=== PATIENT | female | born 1975 | race Two or more races ===

== ENCOUNTER 2020-07-10 08:30 | Inpatient (IN) | payer OTHER ==
[~2020-07-10] VITALS: Ht 162.6 cm; Wt 72.6 kg
[2020-07-10] MEDS ORDERED: GRALISE600 MG PO (11:21)
[2020-07-10] MEDS ORDERED: BACLOFEN20 MG PO (11:38)
[2020-07-10] MEDS ORDERED: IBU800 MG PO (11:39)
== END 2020-07-20 12:31 | disposition home or self-care (01) | DRG 743 ==
LOC: SURH 08:30 → O/R 07-17 09:45 → SURG 07-17 19:35 → SURH 07-17 20:00 → SURG 07-20 12:31
PROVIDERS: ADMIT Obstetrics & Gynecology Gynecologic Oncology; ATTEND Obstetrics & Gynecology Gynecologic Oncology
PROC: 0UT20ZZ Resection of Bilateral Ovaries, Open Approach (ICD-10-PCS; 2020-07-17)
PROC: 0UT70ZZ Resection of Bilateral Fallopian Tubes, Open Approach (ICD-10-PCS; 2020-07-17)
PROC: 0UT90ZZ Resection of Uterus, Open Approach (ICD-10-PCS; principal; 2020-07-17 20:00)
DX: D25.1 Intramural leiomyoma of uterus (principal); D25.0 Submucous leiomyoma of uterus; N83.201 Unspecified ovarian cyst, right side; N93.9 Abnormal uterine and vaginal bleeding, unspecified

== ENCOUNTER 2024-03-19 07:15 | Inpatient (IN) | payer OTHER ==
[~2024-03-19] VITALS: Ht 167.6 cm; Wt 83.5 kg
[~2024-03-19 07:15] MED LIST: BACLOFEN20 MG PO; GRALISE600 MG PO; IBU800 MG PO
[2024-03-21] MEDS ORDERED: ZESTRIL30 MG (09:55)
[2024-03-21] MEDS ORDERED: GABAPENTIN 800MG (09:56)
[2024-03-21] MEDS ORDERED: ADULT LOW DOSE81 M1 (09:56)
[2024-03-21] MEDS ORDERED: CYMBALTA60 MG (09:56)
[2024-03-21] MEDS ORDERED: TEMAZEPAM30 MG (09:57)
[2024-03-21] MEDS ORDERED: QUETIAPINE 100 MG (09:57)
[2024-03-21] MEDS ORDERED: DIVALPROEX (09:58)
[2024-03-21 10:20] LABS: HEMATOCRIT 38.4 % (36.0-45.00); HEMOGLOBIN 13.2 g/dL (12.0-15.00); MEAN CELL VOLUME 85.9 fL (80.00-100.00); MEAN CORPUSCULAR HEMOGLOBIN 29.6 pg (27.00-32.0); MEAN CORPUSCULAR HGB CONC 34.4 g/dl (32.0-36.0); PLATELET COUNT 327 K/uL (150-450); RED BLOOD COUNT 4.47 M/uL (4.00-6.00); RED CELL DISTRIBUTION WIDTH 15.6 % (11.5-14.5)
[2024-03-21 10:22] LABS: URINE APPEARANCE Clear; URINE BILIRRUBIN Negative (NEGATIVE); URINE BLOOD Negative; URINE COLOR Yellow; URINE GLUCOSE Negative (NEGATIVE); URINE KETONE Negative (NEGATIVE); URINE LEUKOCYTE Negative; URINE NITRATE Negative; URINE PROTEIN Negative (NEGATIVE); URINE UROBILINOGEN 0.2 E.U./dl
[2024-03-21 10:24] LABS: URINE BACTERIA 161.2 uL (0.0-1933); URINE EPITHELIAL CELLS 4.5 uL (0.0-38.8); URINE RBC 3.9 uL (0.0-20.8); URINE WBC 1.8 uL (0.0-23.2)
[2024-03-21 11:01] LABS: CALCIUM 9.5 mg/dL (8.5-10.1); CREATININE SERUM 0.84 mg/dL (0.55-1.02); GFR 72.67; POTASSIUM 4.16 mEq/L (3.5-5.1)
[2024-03-21 11:12] LABS: INR 0.95; PARTIAL THROMBOPLASTIN TIME 30.5 SECONDS (22.0-34.0); PROTHROMBIN TIME 10.4 SECONDS (9.0-11.5)
[2024-03-26] MEDS ORDERED: DEXAMETHASONE SODIUM PHOSP/PF 10 MG/ML VIAL IV ONE (12:15)
[2024-03-26] MEDS ORDERED: CEFAZOLIN SODIUM 1,000 MG VIAL IV SCH (12:15)
[2024-03-26] MEDS ORDERED: MEPERIDINE HCL 25 MG/ML AMPUL IV ONE (14:00)
[2024-03-26] MEDS ORDERED: ENALAPRILAT DIHYDRATE 1.25 MG/ML VIAL IV PRN (15:15)
[2024-03-26] MEDS ORDERED: ONDANSETRON HCL 2 MG/ML VIAL IV PRN (15:15)
[2024-03-26] MEDS ORDERED: ENALAPRILAT DIHYDRATE 1.25 MG/ML VIAL IV ONE ×2 (15:15→15:45)
[2024-03-26] MEDS ORDERED: CYCLOBENZAPRINE HCL 5 MG TABLET PO SCH (17:00)
[2024-03-26] MEDS ORDERED: TRAMADOL HCL 50 MG TABLET PO SCH (17:00)
[2024-03-26] MEDS ORDERED: ACETAMINOPHEN 500 MG GEL..CAP PO SCH (17:00)
[2024-03-26] MEDS ORDERED: GABAPENTIN 600 MG TABLET PO SCH (17:00)
[2024-03-26 19:22] VITALS: BP 138/78; O2SAT 95
[2024-03-26] MEDS ORDERED: Calcium Carbonate 1 TAB TABLET PO SCH (21:00)
[2024-03-26] MEDS ORDERED: PANTOPRAZOLE SODIUM 40 MG/VIAL VIAL IV PUSH SCH (21:00)
[2024-03-27 00:44] VITALS: BP 142/82; O2SAT 95
[2024-03-27] MEDS ORDERED: CALCITRIOL 0.5 MCG CAPSULE PO SCH (09:00)
[2024-03-27] MEDS ORDERED: LEVOTHYROXINE SODIUM 125 MCG TABLET PO SCH (09:00)
[2024-03-27] MEDS ORDERED: Calcium Carbonate 1 TAB TABLET PO NR (09:33)
[2024-03-27 10:35] VITALS: BP 149/70; O2SAT 98
== END 2024-03-27 12:18 | disposition home or self-care (01) | DRG 626 ==
LOC: O/R 03-26 05:39 → SURH 03-26 09:00 → O/R 03-26 09:15 → SURH 03-26 10:45
PROVIDERS: ADMIT Surgery; ATTEND Surgery
PROC: 0GSN0ZZ Reposition Right Inferior Parathyroid Gland, Open Approach (ICD-10-PCS; 2024-03-26)
PROC: 0GTK0ZZ Resection of Thyroid Gland, Open Approach (ICD-10-PCS; principal; 2024-03-26 10:45)
DX: E04.1 Nontoxic single thyroid nodule (principal); E36.1 Accidental puncture and laceration of an endocrine system organ or structure during a procedure; E06.3 Autoimmune thyroiditis; Z20.822 Contact with and (suspected) exposure to COVID-19